=== PATIENT | male | born 1990 | race Caucasian/White ===

== ENCOUNTER 2020-09-03 17:10 | Emergency (ER) | payer OTHER ==
[2020-09-03 18:40] LABS: Bilirubin Negative (Negative); Blood, Urine Negative (Negative); Clarity Clear (Clear); Glucose, Urine (Dipstick) Normal (Negative); Ketone, Urine Negative (Negative); Leukocyte Negative Leu/uL (Negative); Nitrite Negative (Negative); Protein, Urine (Dipstick) Negative (Neg-Trace); Specific Gravity, Urine 1.015 (1.002-1.036); Urobilinogen Normal mg/dL (Less than 2)
--- NOTE | 2020-09-03 18:40 | ULT ---
Exam: Testicular ultrasound HISTORY: Right-sided testicular pain just before [place], after picking up a heavy box. COMPARISON: None TECHNIQUE: Sagittal and transverse imaging of the left and right hemiscrotum are performed. Testicula r Doppler is performed with grayscale, color-flow, Doppler imaging and spectral waveform analysis. FINDINGS: Right hemiscrotum: Testicle: Homogeneous echotexture. No intratesticular masses. Right testicle measurements: 3.1 x 3.7 x 2.1 Right epididymis: Normal echotexture. Right epididymis measurements: 0.7 x 1.1 cm Hydrocele: None Left hemiscrotum: Left testicle: Homogeneous echotexture. No intratesticular masses. Left testicle measurements: 2.5 x 1.9 x 3.8 cm Left epididymis: Normal echotexture. Left epididymis measurements:1.3 x 0.7 cm Hydrocele: Trace fluid Testicular Doppler: There is symmetric vascular flow to the left and right testicle. IMPRESSION: 1. Symmetric echotexture of the testicles. 2. Trace left-sided hydrocele.
== END 2020-09-03 19:26 ==
LOC: ERS 17:10
DX: N45.1 Epididymitis (principal); Z87.891 Personal history of nicotine dependence
CPT/HCPCS: 76870; 81003; 87086; 87491; 87591; 93976